=== PATIENT | male | born 1980 | race American Indian/Alaskan Native ===

== ENCOUNTER 2017-10-13 14:06 | Emergency (ER) | payer OTHER ==
[2017-10-13 14:32] VITALS: TEMP 98.4; O2SAT 98; BMI 41.5
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
[2017-10-13 17:00] VITALS: BP 138/84; PULSE 70; RESP 16
== END 2017-10-13 16:59 | disposition home or self-care (01) ==
LOC: ED 14:06
DX: M54.6 Pain in thoracic spine (principal); V49.49XA Driver injured in collision with other motor vehicles in traffic accident, initial encounter; Y92.410 Unspecified street and highway as the place of occurrence of the external cause